=== PATIENT | female | born 1975 | race Caucasian/White ===

== ENCOUNTER 2018-05-17 00:49 | Outpatient (CLI) | payer BC, SELFPAY ==
--- NOTE | 2018-05-17 12:00 | DI.MAMMO_ITS ---
SYMPTOMS/DIAGNOSIS: SCREENING, Z12.31, BASELINE MAMMOGRAM: Mammograms were interpreted according to the usual protocol including computer analysis with CAD system, tomosynthesis and C view imaging. This is a baseline examination. The breasts are composed of heterogeneously dense fibroglandular tissue, breast density Category C. There is scattered benign appearing calcifications in both breasts, greatest in the upper outer quadrants. No suspicious microcalcifications or suspicious masses are seen. IMPRESSION: Category 2 C, negative mammogram with benign findings. Yearly screening mammography is recommended. MQSA ASSESSMENT OF FINDINGS: Negative with benign findings. Category 2. Patient will receive a letter notifying them of these results. Bi-RADS category C. The breasts are heterogeneously dense, which may obscure small masses.
== END 2018-05-17 01:09 ==
PROVIDERS: PCP Family Medicine; Visit Provider Family Medicine
DX: Z12.31 Encounter for screening mammogram for malignant neoplasm of breast (principal)
CPT/HCPCS: 77063; 77067

== ENCOUNTER 2018-12-06 18:48 | Outpatient (REF) | payer BC, SELFPAY ==
[2018-12-08 14:02] LABS: Chlamydia Result Negative; GC Result Negative
== END 2018-12-06 19:08 ==
LOC: LBN 18:48
PROVIDERS: PCP Family Medicine; Visit Provider Family Medicine
DX: N76.0 Acute vaginitis (principal)
CPT/HCPCS: 87491; 87591

== ENCOUNTER 2019-03-10 02:17 | Outpatient (CLI) | payer BC, SELFPAY ==
--- NOTE | 2019-03-10 08:43 | DI.US_ITS ---
EXAM: US THYROID CLINICAL HISTORY: RT THYROID NODULE, E04.1 TECHNIQUE: Ultrasound performed using standard protocol. COMPARISON: THYROID ULTRASOUND from 03/05/2017 FINDINGS: The left lobe measures 4.9 x 1.2 x 1.1 centimeters. There is normal blood flow. No mass is seen. The right lobe measures 5 x 2 x 1.8 centimeters. There is a complex cystic and solid mass in the low er pole of the right lobe of the thyroid gland. It measures 2.4 x 1.4 x 1.8 centimeters. This michael res to 1.6 x 0.7 x 1 centimeter. There is a nodular component internally. There is internal blood f low present. Septations are seen. There is a 2nd heterogeneous mass in the midpole of the right lob e of the thyroid gland. It does show internal blood flow. It measures 0.8 x 0.7 x 0.9 centimeters. The isthmus is unremarkable. IMPRESSION: Interval increase in size of right thyroid nodules. Further evaluation is warranted for the larger a nd more complex nodule in the lower pole. Biopsy should be considered.
== END 2019-03-10 02:37 ==
PROVIDERS: PCP Family Medicine; Visit Provider Otolaryngology
DX: E04.2 Nontoxic multinodular goiter (principal)
CPT/HCPCS: 76536

== ENCOUNTER 2019-04-07 10:05 | Outpatient (REF) | payer BC, SELFPAY | END 2019-04-07 10:25 | LOC: LBN 10:05 | PROVIDERS: PCP Family Medicine; Visit Provider Family Medicine | DX: N76.0 Acute vaginitis (principal) | CPT/HCPCS: 87480; 87510; 87660 ==

== ENCOUNTER 2019-04-12 02:56 | Outpatient (CLI) | payer BC, SELFPAY ==
--- NOTE | 2019-04-12 12:53 | DI.US_ITS ---
EXAM: US PELVIS AND TRANSVAGINAL CLINICAL HISTORY: LLQ PAIN X 2-1/2 YEARS INTERMITTENTLY, R10.32 TECHNIQUE: Ultrasound of the pelvis, both abdominal and transvaginal, was performed using standard p rotocol. COMPARISON: US THYROID from 03/10/2019 FINDINGS: KIDNEYS: Kidneys are symmetric in size. No evidence of renal calculi. No evidence of hydronephrosis. No renal mass or cyst identified. UTERUS: Position: Anteverted. Size: 9.4 x 5.1 x 5.6 cm Endometrium: 1.4 cm. Normal for patient's menstrual status. Myometrium: 3 hypoechoic masses are identified. The largest is seen in the fundal region and measure s 1.8 centimeters. These likely reflect fibroids. Cervix: Unremarkable. OVARIES: Right: 2.9 x 1.3 x 1.3 cm Cyst or mass: Small follicular cysts. Left: 3.6 x 1.7 x 1.6 cm Cyst or mass: 2.1 centimeter involuting cyst. DOPPLER: Color: Symmetric and uniform flow to both ovaries. No hyperemia. Duplex: Normal ovarian arterial waveforms visualized. CUL-DE-SAC: Free fluid: Small amount. IMPRESSION: 1. Normal sonographic appearance of the kidneys. 2. Fibroid uterus. 3. Unremarkable bilateral ovaries.
== END 2019-04-12 03:16 ==
PROVIDERS: PCP Family Medicine; Visit Provider Family Medicine
DX: R10.32 Left lower quadrant pain (principal); D25.9 Leiomyoma of uterus, unspecified
CPT/HCPCS: 76830; 76856

== ENCOUNTER 2019-12-02 12:06 | Outpatient (CLI) | payer BC, SELFPAY ==
[2019-12-05 00:07] LABS: SARS-CoV-2 RNA Undetected (Undetected); SARS-CoV-2 Specimen Source Nasopharynx
== END 2019-12-02 12:26 ==
PROVIDERS: PCP Family Medicine; Visit Provider Family Medicine
DX: Z11.59 Encounter for screening for other viral diseases (principal)
CPT/HCPCS: U0003

== ENCOUNTER 2020-05-28 11:36 | Outpatient (REF) | payer BC, SELFPAY ==
--- NOTE | 2020-05-28 10:20 | PAPFT_PTH ---
PATIENT: Caitlin Epstein LOC: [facility] U#:[id number] AGE/SX: 44/F ROOM: RE05/28/[address]: Sheryl Ortega MD : 1975 BED: DIS: 05/28/2020 SPEC #: [id number] RECD: 05/28/20 12:59 STATUS: JANETH REAdrian #: [id number] ELVIS: 05/28/20 10:[address]: Sheryl Ortega DEPT: [facility] Cytology RECD BY: Deepika Luu Tissues: 1 - CX/ENDOCX FOR PAP SMEARS Procedures: PAP THIN PREP/UVM Screening HPV DNA PROBE Comments: [id number]
== END 2020-05-28 11:37 | disposition home or self-care (01) ==
LOC: LBN 11:36
PROVIDERS: PCP Family Medicine; Visit Provider Family Medicine
DX: Z12.4 Encounter for screening for malignant neoplasm of cervix (principal); Z11.51 Encounter for screening for human papillomavirus (HPV)
CPT/HCPCS: 88142; 87624

== ENCOUNTER 2020-06-15 02:21 | Outpatient (CLI) | payer BC, SELFPAY | END 2020-06-15 02:22 | disposition home or self-care (01) | LOC: LBO 02:21 | PROVIDERS: PCP Family Medicine; Visit Provider Family Medicine | DX: E04.1 Nontoxic single thyroid nodule (principal) | CPT/HCPCS: 36415; 84443 ==

== ENCOUNTER 2022-05-21 02:15 | Outpatient (CLI) | payer BC, SELFPAY ==
--- NOTE | 2022-05-21 09:55 | DI.MAMMO_ITS ---
Exam(s) MG MAMMO DIAGNOSTIC BI US BREAST LT LIMITED EXAM: MG MAMMO DIAGNOSTIC BI CLINICAL HISTORY: lump of left breast,n63.20. TECHNIQUE: Craniocaudal and mediolateral oblique Full Field Digital Mammography views with Computer Aided Diagnosis followed by Tomosynthesis and left breast ultrasound. COMPARISON: MG MG mammo screening from 05/17/2018 US US BREAST LT LIMITED from 05/21/2022 FINDINGS: The patient noted a palpable abnormality in the upper outer quadrant of the left breast which since h as resolved. Mammography/Tomosynthesis: Masses/Architectural Distortion: 2 circumscribed nodules visible in upper outer quadrant. No spicula edna mass is visible Microcalcifictions: Scattered benign calcifications. No suspicious pleomorphic-type are seen. Skin Thickening/Nipple Retraction: None. Left breast US: Echotexture: Normal appearance of the glandular tissue. Shadowing: No suspicious foci. Cyst: 1.5 centimeters cyst 1 o'clock position 2 cm from the nipple. Additional adjacent cyst seen 1 o'clock position 2 cm from the nipple. 1 centimeters cyst 2 o'clock position 1 cm from the nipple. Solid lesions: None seen. Ductal dilation: None. IMPRESSION: 1. No evidence of malignancy is noted. Small simple cysts noted in the upper outer quadrant of the l eft breast. 2. Unless there is more urgent need, follow-up screening mammography is recommended, as per [place] [employer] guidelines. 3. The findings were discussed with the patient on the date of the examination. BI-RADS Category 2 - Benign Findings Breast Density - Category C - Heterogeneously dense Breast density category C or D implies that the patient has dense breast tissue. Dense breast tissue is very common and is not abnormal but dense breast tissue can make it harder to find cancer on a ma mmogram. Also, dense breast tissue may increase their breast cancer risk. This information about the result of the mammogram report was provided to the patient to raise their awareness. Use this report when you speak with the patient about their risks for breast cancer, which includes their family hist ory. At that time, you may recommend for more screening tests (Ultrasound or MRI) as they might be us eful based on their risk. A negative radiographic report should not delay biopsy if a dominant or clinically suspicious mass is present. Up to ten percent of cancers are not identified on mammography. A negative report may reinforce clinical impression. Adenosis and dense breasts may obscure an underlying neoplasm. False positive reports average 6 to 10%. Patient will receive a letter notifying them of these results.
== END 2022-05-21 02:35 ==
PROVIDERS: PCP Nurse Practitioner Family; Visit Provider Nurse Practitioner Family
DX: N63.21 Unspecified lump in the left breast, upper outer quadrant (principal); N60.12 Diffuse cystic mastopathy of left breast
CPT/HCPCS: 76642; 77062; 77066; G0279

== ENCOUNTER → 2023-03-20 00:28 | Outpatient (CLI) | payer BC, SELFPAY ==
[2023-03-20] MEDS: Barium Sulfate 2% W/V-Berry Smoothie 450 ML BTL 900 ML PO (12:47)
[2023-03-20] MEDS: Omnipaque 350 MG/ML 500 ML BTL-Imaging package IJ (13:54)
[2023-03-20] MEDS: Normal Saline - Diluent 50 ML VIAL IJ (13:54)
[2023-03-20] MEDS: Normal Saline Flush 10 ML SYR IVP (13:55)
--- NOTE | 2023-03-20 14:02 | DI.CT_ITS ---
Exam(s) CT ABDOMEN PELVIS W EXAM: CT ABDOMEN PELVIS W CLINICAL HISTORY: Lower abdominal pain,R10.9 TECHNIQUE: Imaging Protocol: Axial computed tomography images with coronal and sagittal reformatted images were created and reviewed CONTRAST MATERIAL: Intravenous: Omnipaque 350 Contrast volume:100 mL Oral: Yes COMPARISON: US US PELVIS TRANSVAGINAL from 04/12/2019 FINDINGS: ABDOMEN: Lung Bases: Normal where visualized. Liver: Normal density. Small cysts are seen in the liver. No suspicious hepatic lesions are seen. Portal, Superior Mesenteric, and Splenic Veins: Unremarkable. Gallbladder and Biliary Tract: No radiodense calculus or dilation. Pancreas: Normal density, no abnormal calcifications or inflammatory process. Spleen: Normal. Adrenals: No masses seen. Kidneys: Normal size, contour and axis. No radiodense stones or obstructive uropathy. No masses seen. Abdominal Aorta: Abdominal portion non-dilated. Bowel: No obstruction or bowel wall thickening. No evidence of appendicitis. Peritoneal Cavity: No ascites, collection or mesenteric inflammatory response. No free air. Lymph Nodes: Within normal limits. Bones: Within normal limits for the patient's age. Soft Tissues: Unremarkable. PELVIS: Bladder: Symmetric distention, no gross wall thickening. Reproductive Organs: There are multiple uterine fibroids present. The largest is seen on the right a nd measures 4.4 x 4.3 cm. There is a tampon in place. There is a 3.0 x 3.3 cm left ovarian cyst. Lymph Nodes: Within normal limits. Bones: Within normal limits for the patient's age. IMPRESSION: 1. Enlarged fibroid uterus. 2. No acute abdominal pelvic process. RADIATION DOSE DELIVERED: Total DLP DATA REPOSITORY: All CT scans at this facility are submitted to the National Radiology Data Registry (NRDR) Dose Index Registry (DIR) with the [employer] (ACR). RADIATION OPTIMIZATION: All CT scans at this facility use at least one of these dose optimization te chniques: automated exposure control; mA and/or kV adjustment per patient size (includes targeted exa ms where dose is matched to clinical indication); or iterative reconstruction.
== END ==
PROVIDERS: PCP Nurse Practitioner Family; Visit Provider Nurse Practitioner Family
DX: R10.9 Unspecified abdominal pain (principal); N85.2 Hypertrophy of uterus
CPT/HCPCS: 74177

== ENCOUNTER 2023-05-21 21:08 | Emergency (ER) | payer BC, SELFPAY ==
[2023-05-21 21:10] VITALS: BP 122/67; PULSE 84; RESP 18; TEMP 36.5; O2SAT 99
--- NOTE | 2023-05-21 21:23 | NUR.NOTE ---
Nursing Note: Pt called RN into bathroom, large fist sized clot noted in toilet. Dr Waggoner called over to visualize, walked pt back to room.
--- NOTE | 2023-05-21 21:27 | ED.GENADUL_ITS ---
HPI General Mode of arrival: ambulatory . Date/Time Provider Initiated Documentation: 05/21/23 21:10 . Limitations to Documentation: no limitations . Information obtained by: patient . History of Present Illness 47 year old F presents to the emergency department with the chief complaint of lower abdominal cramping, described as moderate, Patient started experiencing this day(s) (1) and it has been intermittent. No relieving factors improve symptom(s), No exacerbating factors reported . Patient notes denies chest pain, fever/chills and shortness of breath. Patient did receive the following treatments prior to arrival, NSAID Related Data Home Medications Medication Instructions Recorded Confirmed metronidazole 500 mg tablet 500 mg PO Q12H 7 days #14 tabs 04/22/23 05/21/23 norethindrone acetate 1.5 1 tab PO .COMPLEX #63 tabs 04/22/23 05/21/23 mg-ethinyl estradiol 30 mcg tablet Previous Rx's Medication Instructions Recorded metronidazole 500 mg tablet 500 mg PO Q12H 7 days #14 tabs 04/22/23 norethindrone acetate 1.5 1 tab PO .COMPLEX #63 tabs 04/22/23 mg-ethinyl estradiol 30 mcg tablet Allergies Allergy/AdvReac Type Severity Reaction Status Date / Time No Known Allergies Allergy Unverified 05/21/23 21:15 General Stated Complaint: Abd Prob JUDY: 3 Review of Systems All systems reviewed & are unremarkable except as noted in HPI and below Constitutional Constitutional: Denies chills, Denies fever(s) and Denies weakness Cardiovascular Cardiovascular: Denies chest pain and Denies dyspnea Respiratory Respiratory: Denies cough and Denies dyspnea Gastrointestinal Gastrointestinal: Denies vomiting Genitourinary Genitourinary: Denies dysuria Integumentary/Breasts Skin/Breast: Denies rash Neurologic Neurologic: Denies weakness Exam Const General: no acute distress Orientation: alert HENMT Head: normal to inspection Ears: external ears normal General nose exam: external nose normal Mouth: moist mucous membranes Eyes General: appearance normal, both eyes and all related structures Neck Neck: normal visual inspection Resp Effort & Inspection: normal respiratory effort and able to speak in complete sentences Cardio Rate: regular rate GI Palpation: soft and nontender Skin General skin exam: no rashes or lesions noted Neuro General: patient alert and patient oriented x3 Extrem General: normal to inspection Psych Mental Status: mental status grossly normal Course Vital Signs Vital signs: Vital Signs Temperature 36.5 C 05/21/23 21:10 Pulse 84 05/21/23 21:10 Respiratory Rate 18 05/21/23 21:10 Blood Pressure 122/67 05/21/23 21:10 Pulse Oximetry 99 05/21/23 21:10 Temperature 36.5 C 05/21/23 21:10 Temperature Source Skin 05/21/23 21:10 Pulse 84 05/21/23 21:10 Respiratory Rate 18 05/21/23 21:10 Respiratory Effort Normal, Non-Labored 05/21/23 21:14 Blood Pressure 122/67 05/21/23 21:10 Blood Pressure Position Sitting 05/21/23 21:10 Pulse Oximetry 99 05/21/23 21:10 Oxygen Delivery Method Room Air 05/21/23 21:10 Oxygen Flow Rate 0 05/21/23 21:10 Pain Level 7 05/21/23 21:10 Medical Decision Making 47 yo female with hx of known fibroid and states going to have elective hysterectomy in June and has had lower abdominal cramping for a few months and intermittent bleeding with ct and u/s only showing fibroid in the uterus, comes in with lower abdominal cramping and bleeding throughout the day. Denies upper abdominal pain, vomiting, fevers, chills. She took ibuprofen around 8pm and now feels better, did have a clot of blood when she went to urinate. She is caox4 speaking clearly, has a soft nontender abdomen. Suspect this could be related to her fibroid, will check cbc, cmp and coags and reassess. Given lack of abdominal tenderness now with recent reassuring imaging doubt other surgical pathology such as appendicitis or entities such as diverticulitis labs without significant abnormalities, pt asymptomatic and requests d/c, given stable vitals and no tenderness feel she is stable for d/c and can f/u with obgyn. Return precautions given Differential Diagnosis Differential Diagnosis: fibroid, anemia Quality:SDOH Health Related Social Needs: No Data to Display PFSH All Active Problems (Updated 05/21/23 @ 21:53 by Michel Waggoner MD) Vaginal bleeding (Acute) Hx of section (Chronic) Abnormal uterine bleeding (AUB) (Acute) Fibroid uterus (Acute) 2019. [id number] Fibroids: [id number], [id number] 2022. [id number] Fibroids: [id number], [id number] Abdominal pain (Acute) Lump of left breast (Acute) Bacterial vaginosis (Acute) recurrent/prophylactic tx with metronidazole Encounter for insertion of mirena IUD (Acute 11/24/16) Thyroid nodule (Acute 07/24/16) DR. BAPTISTE; RIGHT; 1.8 X 1.2 X 0.7 cm Thyroid cyst (Acute 02/28/16) RIGHT-DR. BAPTISTE Seborrheic keratoses (Acute 01/02/14) LEFT THIGH Surgical History (Updated 04/22/23 @ 21:13 by Anika Armenta MD) History of biopsy SHAVE BX L THIGH 01/02/14 Family History (Updated 05/30/20 @ 12:23 by Kori Smith) Mother No problems noted. Father Depression Brother No problems noted. Maternal Grandfather , AGE 83 Cancer Paternal Grandfather , AGE 50 No problems noted. Maternal Grandmother , AGE 85 No problems noted. Paternal Grandmother , AGE 93 No problems noted. Son No problems noted. Daughter No problems noted. Social History (Updated 04/22/23 @ 21:13 by Anika Armenta MD) Smoking/Tobacco Use Status: Never Second Hand Exposure: Yes Smoking risk assessment performed?: Yes Alcohol Intake: never Drug use: Never Substance use type: does not use Caregiver/Support person: No Household members: children and other Details: S- Bashir 20yo @ [employer]. D-Mary Kate 18yo Housing: house Number of Children: 2 Communication Needs: None Education Level: college Do you need help understanding health information?: Rarely current occupation: Teacher. Pets and animals: Yes Pets and animals: dog(s) Do you think of yourself as: straight/heterosexual Current gender identity: female What is your relationship status?: How often do you talk on the phone with friends or family?: three or more times per week How often do you get together with friends or relatives?: twice per week How often do you attend baptism or moravian services?: 1-3 times per year Do you belong to any clubs or organized social groups?: yes Panel score (0-1 are the most socially isolated patients): 2 What type of physical activity do you participate in: running Duration: 30-45 minutes/day Frequency: 3-4 times per week Delaney/Samaritan: None Special delaney needs: No Seatbelt use: always Helmet use: Yes Helmet use: always Drive intox or ride w/intox industrial truck driver: No Discharge Plan Disposition Patient Disposition: Home Condition: Stable Discharge Details Clinical Impression: Vaginal bleeding, Abdominal pain Primary Care Provider: Cruz Pringle ED Provider: Michel Waggoner Home Meds and New Rx's Prescriptions: Continued metronidazole 500 mg tablet 500 mg PO Q12H 7 Days Qty: 14 5RF norethindrone ac-eth estradiol 1.5-30 mg-mcg tablet 1 tab PO .COMPLEX Qty: 63 5RF Rx Instructions: 1 tab orally take pill with hormones every day. Do not stop the pills to have a period.; Discharge Instructions Additional Instructions: your blood work did not show concerning findings you can take 600mg ibuprofen every 6 hours as needed follow up with [facility] within a week return to the emergency department for severe worsening of pain, if you feel short of breath or have persistent vomiting
[2023-05-21 21:50] LABS: Abs Immature Grans 0.02 10^3/uL (0.0-0.06); Absolute Basophil Count 0.04 10^3/uL (0.0-0.2); Absolute Eosinophil Count 0.23 10^3/uL (0.0-0.7); Absolute Lymphocyte Count 2.07 10^3/uL (1.2-3.4); Absolute Monocyte Count 0.56 10^3/uL (0.1-0.8); Absolute Neutrophil Count 5.63 10^3/uL (1.2-6.7); Basophils % 0.5; Eosinophils % 2.7; HCT 35.7 % (36.0-46.0); Immature Grans % 0.2; Lymphocytes % 24.2; MCH 30.3 pg (27.0-33.0); MCHC 33.6 % (32.0-36.0); MCV 90 fL (80-95); MPV 10.2 fL (8.0-11.0); Monocytes % 6.5; Neutrophils % 65.9; Platelet Count 309 10^3/uL (130-400); RBC 3.96 10^6/uL (3.93-5.22); RDW-SD 39.3 fL; WBC 8.55 10^3/uL (4.4-10.8)
[2023-05-21 22:01] LABS: PTT Activated 24.8 sec (23.6-32.8); Prothrombin Time 9.8 sec (9.1-11.1)
[2023-05-21 22:09] LABS: HCG Qual (Serum) Negative
[2023-05-21 22:10] LABS: ALT 24 U/L (14-59); AST 15 U/L (15-37); Albumin 3.5 g/dL (3.4-5.0); Alkaline Phosphatase 30 U/L (46-116); Anion Gap 12.3 mmol/L (3-11); BUN 17 mg/dL (7-18); Bilirubin, Total 0.3 mg/dL (0.2-1.0); CO2 24.7 mmol/L (21.0-32.0); CREATININE 1.1 mg/dL (0.55-1.02); Calcium 9.2 mg/dL (8.5-10.1); Chloride 104 mmol/L (98-107); Estimated GFR 62.37 (mL/min/1.73m2); Glucose 132 mg/dL (74-106); Potassium 3.7 mmol/L (3.5-5.1); Sodium 141 mmol/L (136-145); Total Protein 6.7 g/dL (6.4-8.2)
[2023-05-21 22:35] VITALS: PULSE 69; RESP 16; O2SAT 100
== END 2023-05-21 22:40 | disposition home or self-care (01) ==
PROVIDERS: Emergency Provider Emergency Medicine; PCP Nurse Practitioner Family
DX: N93.9 Abnormal uterine and vaginal bleeding, unspecified (principal); R10.30 Lower abdominal pain, unspecified
CPT/HCPCS: 36415; 80053; 86850; 86900; 86901; 99283; 84703; 85025; 85610; 85730

== ENCOUNTER 2023-06-02 03:33 | Outpatient (CLI) | payer BC, SELFPAY ==
[2023-06-02 16:22] LABS: HCT 35.2 % (36.0-46.0); HGB 11.7 g/dL (11.2-15.7); MCH 30.5 pg (27.0-33.0); MCHC 33.2 % (32.0-36.0); MCV 92 fL (80-95); MPV 10.6 fL (8.0-11.0); Platelet Count 327 10^3/uL (130-400); RBC 3.84 10^6/uL (3.93-5.22); RDW 12.1 % (11.7-14.6); RDW-SD 40.7 fL; WBC 6.08 10^3/uL (4.4-10.8)
[2023-06-02 17:06] LABS: HCG Qual (Serum) Negative
[2023-06-02 17:16] LABS: ALT 19 U/L (14-59); AST 10 U/L (15-37); Albumin 3.4 g/dL (3.4-5.0); Alkaline Phosphatase 31 U/L (46-116); Anion Gap 10.3 mmol/L (3-11); BUN 14 mg/dL (7-18); Bilirubin, Total 0.2 mg/dL (0.2-1.0); CO2 24.7 mmol/L (21.0-32.0); Calcium 8.8 mg/dL (8.5-10.1); Chloride 108 mmol/L (98-107); Estimated GFR 69.93 (mL/min/1.73m2); Glucose 133 mg/dL (74-106); Potassium 3.9 mmol/L (3.5-5.1); Sodium 143 mmol/L (136-145); Total Protein 6.3 g/dL (6.4-8.2)
== END 2023-06-02 03:34 | disposition home or self-care (01) ==
LOC: LBO 03:33
PROVIDERS: PCP Nurse Practitioner Family; Visit Provider Obstetrics & Gynecology Gynecology
DX: N93.8 Other specified abnormal uterine and vaginal bleeding (principal); D25.9 Leiomyoma of uterus, unspecified; Z01.818 Encounter for other preprocedural examination; Z01.812 Encounter for preprocedural laboratory examination
CPT/HCPCS: 36415; 80053; 85027; 86850; 86900; 86901; 84703

== ENCOUNTER 2023-06-04 11:32 | Observation (INO) | payer BC, SELFPAY ==
[2023-06-04] VITALS (13 sets, daily range): BP systolic 94–118; BP diastolic 53–96; PULSE 66–83; RESP 12–25; TEMP 35.6–37.4; O2SAT 97–100; BMI 25.1
--- NOTE | 2023-06-04 06:21 | W.ANESPRE ---
General Info Date of Service Date Performed: 06/04/23 Height: 5 ft 9 in Weight: 77.111 kg Body Mass Index (BMI): 25.1 Surgical Procedure: Operation Date: 06/04/23 08:25 Proposed Procedure Side Surgeon p Hysterectomy Vaginal Laparoscopic Assist, Possible BRANT, Cystoscopy Anika Armenta MD Meds Allergies and Home Medications Allergies Allergy/AdvReac Type Severity Reaction Status Date / Time No Known Allergies Allergy Unverified 06/04/23 06:32 Home Medication Medication Instructions Recorded norethindrone acetate 1.5 1 tab PO .COMPLEX #63 tabs 04/22/23 mg-ethinyl estradiol 30 mcg tablet metronidazole 500 mg tablet 500 mg PO Q12H PRN 06/02/23 acetaminophen 500 mg tablet 500 mg PO Q6H PRN 06/04/23 (Acetaminophen Extra Strength) Current Visit Medications: Current Medications Generic Name Dose Route Start Last Admin Trade Name Freq PRN Reason Stop Dose Admin Ringer's Solution 1,000 mls @ 125 mls/hr 06/04/23 06:00 IV 06/04/23 23:59 INFUSION NEELAM Cefazolin Sodium/Dextrose 2 gm in 50 mls @ 100 mls/hr 06/04/23 06:00 Ancef Duplex IVPB 06/04/23 23:59 PREOP NEELAM IV Miscellaneous Supplies 1 each 06/04/23 06:00 Iv Access IV 06/04/23 23:59 DIRECTED NEELAM Sodium Chloride 0 ml 06/04/23 06:00 Normal Saline Flush 10 Ml Syr IV 06/04/23 23:59 PRN PRN Sodium Chloride 0 ml 06/04/23 06:00 Normal Saline 10 Ml Vial IJ 06/04/23 23:59 DIRECTED PRN Sterile Water 0 ml 06/04/23 06:00 Water,Injection,Sterile 10 Ml Vial IJ 06/04/23 23:59 DIRECTED PRN PFSH Active Problems Active Problems: Problem Status Onset Code Vaginal bleeding N93.9 Hx of section Z98.891 Abnormal uterine bleeding (AUB) N93.9 Fibroid uterus D25.9 Abdominal pain R10.9 Lump of left breast N63.20 Bacterial vaginosis N76.0, B96.89 Encounter for insertion of mirena IUD 11/24/16 Z30.430 Thyroid nodule 07/24/16 E04.1 Thyroid cyst 02/28/16 E04.1 Seborrheic keratoses 01/02/14 L82.1 Surgical History Surgical History History of biopsy SHAVE BX L THIGH 01/02/14 Tobacco Smoking/Tobacco Use Status: Never Second hand exposure: Yes Alcohol Alcohol Intake: current Alcohol intake frequency: a few times a month Substance Use Substance use: Never Substance use type: does not use Vital Signs and Lab Results Lab Results Blood Type / Crossmatch: Patient ABO/Rh AB Positive 06/02/23 Antibody Screen NEGATIVE 06/02/23 Complete Blood Count: White Blood Count 6.08 10^3/uL (4.4-10.8) 06/02/23 16:03 Red Blood Count 3.84 10^6/uL (3.93-5.22) L 06/02/23 16:03 Hemoglobin 11.7 g/dL (11.2-15.7) 06/02/23 16:03 Hematocrit 35.2 % (36.0-46.0) L 06/02/23 16:03 Platelet Count 327 10^3/uL (130-400) 06/02/23 16:03 Complete Metabolic Panel: Sodium 143 mmol/L (136-145) 06/02/23 16:03 Potassium 3.9 mmol/L (3.5-5.1) 06/02/23 16:03 Chloride 108 mmol/L (98-107) H 06/02/23 16:03 Carbon Dioxide 24.7 mmol/L (21.0-32.0) 06/02/23 16:03 BUN 14 mg/dL (7-18) 06/02/23 16:03 Creatinine 1.0 mg/dL (0.55-1.02) 06/02/23 16:03 Est GFR (CKD-EPI 2020) 69.93 (mL/min/1.73m2) 06/02/23 16:03 Calcium 8.8 mg/dL (8.5-10.1) 06/02/23 16:03 Albumin 3.4 g/dL (3.4-5.0) 06/02/23 16:03 Glucose 133 mg/dL (74-106) H 06/02/23 16:03 Liver Function Panel: Alanine Aminotransferase (ALT/SGPT) 19 U/L (14-59) 06/02/23 16:03 Aspartate Amino Transf (AST/SGOT) 10 U/L (15-37) L 06/02/23 16:03 Coagulation Panel: INR International Normalized Ratio 1.0 (0.9-1.1) 05/21/23 21:35 Prothrombin Time 9.8 sec (9.1-11.1) 05/21/23 21:35 Activated Partial Thromboplast Time 24.8 sec (23.6-32.8) 05/21/23 21:35 Cardiac Panel: No Data to Display Arterial Blood Gas: No Data to Display Venous Blood Gas: No Data to Display Pancreas Panel: No Data to Display Thyroid Panel: No Data to Display Infectious Disease: No Data to Display Blood Cultures: No Data to Display Toxicology Panel: No Data to Display Panel: Serum HCG, Qualitative Negative 06/02/23 16:03 Anesthesia Assessment and Plan Anesthesia History Personal History: No History of Anesthesia Complications Family History: No Family History of Anesthesia Complications Exercise Tolerance Exercise Tolerance: Metabolic Equivalents>4 Pertinent Negatives Pertinent Negatives: No Symptoms of GERD, No Major Cardiovascular Symptoms or Complaints, No Major Pulmonary Symptoms or Complaints and No History of CVA/TIA Cardiac & Pulmonary Exam Cardiac Exam: Normal S1/S2 Heart Sounds Pulmonary Exam: Clear Bilateral Breath Sounds Implantable Cardiac Device Does patient have a Pacemaker or an ICD?: No Airway Exam Known Difficult Airway: No Mallampati Class: 3 Mouth Opening: Normal (> 3cm) Thyromental Distance: Greater than 3 cm Neck Range of Motion: Full ROM Neck Circumference: Normal Teeth Condition: Normal Dentition ASA Classification ASA Score: ASA 2 Emergency Case?: No NPO Status NPO Status: NPO Clears >2 hours, Solids >8 hours Status Status: Negative HCG Anesthesia Plan Resuscitation Status: Full Code Anesthesia Technique: General Anesthesia Airway Planned: Endotracheal Tube Pain Management: Intrathecal Analgesia Monitors Used: Standard Monitors and SedLine
[2023-06-04] MEDS: Lactated Ringers 1,000 ML 125 ML IV ×3 (06:59→21:06)
[2023-06-04] MEDS: ceFAZolin 2 GM/50 ML BAG IVPB (08:55)
[2023-06-04] MEDS: Bupivacaine 0.25% Pres-Free 30 ML VIAL (09:30)
--- NOTE | 2023-06-04 10:40 | UTER_PTH ---
PATIENT: Caitlin Epstein LOC: [facility]#:[id number] AGE/SX: 47/F ROOM: RE06/04/[address]: Anika Armenta : 1975 BED: A DIS: 06/05/2023 SPEC #: [id number] RECD: 06/04/23 12:02 STATUS: JANETH WYATT #: [id number] ELVIS: 06/04/23 10:[address]: Anika Armenta DEPT: Surgical Specimen RECD BY: Deepika Luu ENTERED: 06/04/23 12:04 SP TYPE: UTER OTHR DR: Cruz Pringle, PRISCILLA Tissues: 1 - UTERUS W OR W/O OVARIES(NOT TUMOR/PROLAPSE) Procedures: GROSS AND MICRO LEVEL 5 Comments: [id number]
[2023-06-04] MEDS: Lidocaine 1% Multi-Dose W/EPI 1/100,000 50 ML VIAL (11:14)
--- NOTE | 2023-06-04 11:57 | W.PM.OP ---
Date of service: 06/04/23 Time of Service: 11:58 Operative Note Operative Note DATE OF PROCEDURE: 06/04/23 PRE-OP DIAGNOSIS: fibroid uterus, pelvic pain, abnormal uterine bleeding POST-OP DIAGNOSIS: same PROCEDURE: laparoscopic assisted vaginal hysterectomy, bilateral salpingectomy and bladder cystoscopy SURGEON: Anika Armenta ASSISTING SURGEON: Lilibeth Rosas Refer to Anesthesia Record ESTIMATED BLOOD LOSS: 150 PATHOLOGY: other (uterus, fallopian tubes and cervix.) COMPLICATIONS: None Patient was transported to: PACU Patient's condition: stable Indications: Pt is a 47yo female with a symptomatic fibroid uterus. She had been experiencing increasingly heavy, painful and recently prolonged menses. Findings: Bulky uterus with multiple intramural fibroids and serosal fibroids. Nl ovaries and fallopian tubes. Nl upper abdomen. Procedure Description: Patient was taken to the operating room where she received spinal anethesia. She was then placed in the dorsal supine position and general endotracheal anesthesia was administered without difficulty. She was positioned in the dorsal lithotomy position in yellowfin stirrups with SCDs in place. After being prepped and draped in the usual sterile fashion a surgical timeout was performed. Zuniga catheter was placed to gravity drainage. A bivalve speculum was placed in the vagina the anterior lip of the cervix was grasped with a single-tooth tenaculum. A Latha uterine manipulator was successfully inserted into the uterine cavity, the catheter bulb inflated with 8 cc of normal saline and the device left in place. Attention was then turned to the patient's abdomen. She received 2 g of Ancef prior to skin incision. The umbilical fold was infiltrated with 0.25% Marcaine without epinephrine. A scalpel was then used to make a 12mm horizontal skin incision in the umbilical fold. Two penetrating towel clips were used to tent up the skin and through the periumbilical incision and a Veres needle was introduced into the abdomen with carbon dioxide as the distention medium. Intra-abdominal placement was confirmed by a drop in the intra-abdominal pressure. Once a pneumoperitoneum was established a 12 mm Visiport was placed under direct visualization. Patient was then placed in Trendelenburg position. The skin was infiltrated with 1cc of 0.25% Marcaine without epinephrine at two sites 6 cm diagonal from the umbilical incision. Those sites were incised with a scalpel and two 5 mm lower ports were placed under direct visualization. After careful inspection of the pelvis a LigaSure electrocautery device was used to clamp, cauterize and transect the left mesosalpinx to the left isthmus of the left fallopian tube. The left fallopian tube was transected from the uterine cornua and then delivered through the 12mm umbilical port site. The left proper ovarian ligament was then similarly clamped cauterized and transected from its attachment to the body of the uterus with care take to clamp and cauterize the uterine vessel in proximity to the serosal fibroid . The left round ligament and broad ligament were then clamped, cauterized and transected to the level of the lower uterine segment. The vesico-uterine peritoneum was incised and the the from the lower uterine segment and mobilized off of the body of the cervix. The pedicles of the uterine round and broad ligaments were inspected and noted to be hemostatic. On the contralateral side the right mesosalpinx, right proper ovarian ligament, round, and right broad ligament were sequentially clamped, cauterized and transected using the Ligasure device to the level of the insertion of the uterine vessels. The remaining vesicouterine peritoneum was incised across the lower uterine segment and the bladder flap completed using the Ligasure device and gently counter traction. All pedicles were inspected and noted to be hemostatic. Decision was made to proceed with the vaginal portion of the case. Laparoscopic instruments were removed from the ports , the pneumoperitoneum was reduced, and the was abdomen covered with sterile drape. A weighted vaginal speculum was placed in the vagina and the anterior and posterior lips of the cervix were grasped with Rosaline clamps. Body of the cervix was circumferentially infiltrated with 1% lidocaine solution of epinephrine. A circumferential incision of the cervical epithelium was made with a Bovie electrocautery. The posterior cul-de-sac was entered sharply and through the this incision a long billed weighted speculum was placed. The left and right uterosacral ligament complexes were identified clamped, transected and suture-ligated and the suture held long. The vesicouterine fascia was identified and the anterior cul-de-sac bluntly sharply. Through this incision a curved right angled retractor was inserted and used to retract the bladder away from the operative field. The remaining right and left broad ligament attatchments were sequentially clamped, cauterized, and transected and the specimen was passed off of the operative field. The vaginal cuff was reapproximated in a vertical fashion with a running suture of 0 Vicryl. Instruments removed from the vagina and attention was again turned to the abdomen where a pneumoperitoneum was reestablished and the pelvis inspected using the laparoscope. The vaginal cuff was intact and was hemostatic as were the round ligament and broad ligament pedicles. The instruments were removed from the port sites, the pneumoperitoneum reduced and the ports removed. The fascia of the periumbilical skin incision was closed with interrupted suture of 0 Vicryl. The skin of all port site incisions were reapproximated with a subcuticular closure of 4-0 Monocryl and and covered with sterile steri-strips and a band-aid. A cystoscopy was performed with both ureteral jets were patent with a brisk eflux of urine noted from each. The bladder was inspected and was normal in appearance. Zuniga catheter was reinserted to gravity drainage and the patient was placed in the dorsal supine position, awakened, extubated, and transported recovery area in stable condition. All sponge lap needle counts correct x2.
--- NOTE | 2023-06-04 12:11 | W.ANESPOSTOP ---
Postoperative Evaluation Date, Time and Location Date Performed: 06/04/23 Time Performed: 12:11 Patient Location: Day Surgery Unit Vital Signs Most Recent Imported Vital Signs: Most Recent Vital Signs Temp Pulse Resp BP Pulse Ox 36.5 C 69 20 100/58 L 100 06/04/23 12:02 06/04/23 12:02 06/04/23 12:02 06/04/23 12:02 06/04/23 12:02 Pain Score Most Recent Pain Score: Most Recent Pain Score Pain Level 0 06/04/23 12:02 Assessment Mental Status: Awake (Alert & Oriented to Patient Baseline) Airway and Respiratory Function: Patent airway with normal (patient baseline) respiratory exam Cardiovascular Function: Hemodynamically Stable Hydration Status: Adequately Hydrated Nausea & Vomiting: No Nausea or Vomiting Pain: Pt. Denies Any Pain Peripheral Nerve Block: Patient did not receive a nerve block
--- NOTE | 2023-06-04 15:15 | W.PM.PROGNOT ---
Date of Service Date of service: 06/04/23 Time of Service: 15:15 Assessment and Plan Assessment and plan (1) History of LAVH: Status: Acute Assessment and plan: Plan discharge in am. Subjective Subjective Patient reports: no new complaints, tolerating liquids well and other (throat is scratchy) Interval history since last seen: POD 0 LAVH. Pt reports being comfortable. Zuniga in place. VVS. Visiting with family members. Plan is to get OOB this evening. I reviewed the findings a time of surgery. Anticipated discharge to home tomorrow. Objective Last Vital Signs Temp 97.0 F L 06/04/23 14:29 Pulse 68 06/04/23 14:29 Resp 16 06/04/23 14:29 BP 94/60 L 06/04/23 14:29 Pulse Ox 98 06/04/23 14:29 Time Spent with Patient Time Spent with Patient: <25 minutes Time was spent: other (postop rounding.)
[2023-06-04] MEDS: Ketorolac 30 MG/ML VIAL IVP ×2 (17:50→23:17)
[2023-06-04] MEDS: Normal Saline Flush 10 ML SYR IV (18:14)
[2023-06-04] MEDS: Docusate Sodium 100 MG CAP PO (19:47)
[2023-06-04] MEDS: diphenhydrAMINE 25 MG CAP PO (21:04)
[2023-06-05] MEDS: Ketorolac 30 MG/ML VIAL IVP (05:37)
[2023-06-05] MEDS: Ondansetron 4 MG/2 ML VIAL IVP (05:42)
[2023-06-05] MEDS: Lactated Ringers 1,000 ML 125 ML IV (05:47)
[2023-06-05 06:38] LABS: HCT 32.6 % (36.0-46.0); HGB 10.9 g/dL (11.2-15.7); MCH 30.2 pg (27.0-33.0); MCHC 33.4 % (32.0-36.0); MCV 90 fL (80-95); MPV 10.7 fL (8.0-11.0); Platelet Count 295 10^3/uL (130-400); RBC 3.61 10^6/uL (3.93-5.22); RDW 11.9 % (11.7-14.6); RDW-SD 39.2 fL; WBC 9.75 10^3/uL (4.4-10.8)
[2023-06-05 08:05] VITALS: BP 108/68; PULSE 73; RESP 16; TEMP 36.3; O2SAT 97
[2023-06-05] MEDS: Docusate Sodium 100 MG CAP PO (08:17)
--- NOTE | 2023-06-05 08:19 | W.PM.DS.N ---
Date of service: 06/05/23 Time of Service: 08:19 DS: Diagnosis Discharge Diagnosis (1) History of LAVH: Status: Acute Asessment and Plan: Pt will be discharged to home today. Plan f/u in 2 and 6 weeks. Rx for Percocet for severe pain, Ibuprofen and Acetaminophen for moderate pain. (2) Abnormal uterine bleeding (AUB): Status: Acute (3) Fibroid uterus: Status: Acute Discharge Plan Disposition Patient Disposition: Home Condition: Improving Discharge Details Reason For Visit: Laparoscopic assist vaginal hysterectomy Admit Date/Time: 06/04/23 11:32 Admit Provider: Anika Armenta Attending Provider: Anika Armenta Primary Care Provider: Cruz Pringle Hospital Course Hospital Course: Pt was admitted the morning of surgery and underwent a LAVH with ovarian conservation. 150cc EBL. Discharged to home on POD 1 tolerating regular diet and pain well controlled. Voiding successfully. Incisions well approximated. Steristrips in place. Pt will be discharged with modified activity and Rx for limited number of Percocet for severe pain. Plan f/u in office in two weeks. Final pathology pending. Home Meds and New Rx's Prescriptions: No Action norethindrone ac-eth estradiol 1.5-30 mg-mcg tablet 1 tab PO .COMPLEX Qty: 63 5RF Rx Instructions: 1 tab orally take pill with hormones every day. Do not stop the pills to have a period.; metronidazole 500 mg tablet 500 mg PO Q12H PRN Patient Comments: Pt. states she always has this on hand, but is not currently taking at this time. acetaminophen [Acetaminophen Extra Strength] 500 mg tablet 500 mg PO Q6H PRN Discharge Instructions Additional Instructions: You may take over the counter Ibuprofen 600mg every 6 hours and Acetaminophen 325mg every 6 hours as needed for mild to moderate pain. For severe pain take one tablet of Percocet 5/325mg every six hours as needed for pain. No driving for 2weeks or until you can safely place the breaks on in the event of an emergency. You may remove the bandaids as needed. Steristrips can be left on until your two week postop appointment. No tub baths, showers only. Stand Alone Forms: DSU Post Transfer Coordinator SurgeryW/Incision Activity:: no driving for 2 weeks. Equipment/Supplies:: No Equipment Needed Diet:: As Tolerated Discharge Orders Discharge Orders: Discharge Order (Routine); Ordered 06/05/23 Ordered By: Anika Armenta DS: Summary Time Spent with Patient providing and/or coordinating discharge services: Less than 30 minutes Status at Discharge Functional status at discharge: independent ambulation Overall status at discharge: patient is progressing back to baseline Mental Status: mental status grossly normal Speech and Movement: speech and movement normal Mood: congruent mood Affect: normal affect Quality:SDOH Health Related Social Needs: No Data to Display Exam Const General: no acute distress Nutritional Appearance: average body habitus Orientation: alert, awake and oriented x3 Neck Neck: normal visual inspection Resp Effort & Inspection: normal respiratory effort Cardio Rate: regular rate Rhythm: regular rhythm GI Inspection: normal to inspection Palpation: soft, no masses and nontender Rectal Exam - female: deferred General: deferred Back/Spine/Pelvis Back: no CVA tenderness Skin General skin exam: no rashes or lesions noted, no ecchymosis and no erythema Extrem General: normal to inspection and full ROM Psych Appearance: grossly normal Mental Status: mental status grossly normal Speech and Movement: speech and movement normal Mood: congruent mood Affect: normal affect DS: Data Vitals/I&O Vitals and I&O: Vital Signs Temperature 97.3 F L 06/05/23 08:05 Temperature Source Tympanic 06/05/23 08:05 Pulse 73 06/05/23 08:05 Pulse Rhythm Regular 06/04/23 23:39 Respiratory Rate 16 06/05/23 08:05 Respiratory Effort Normal, Non-Labored 06/04/23 23:39 Respiratory Depth Normal 06/04/23 23:39 Respiratory Pattern Normal 06/04/23 23:39 Blood Pressure 108/68 06/05/23 08:05 Pulse Oximetry 97 06/05/23 08:05 Respiratory End-tidal CO2 34 06/04/23 12:02 Oxygen Delivery Method Room Air 06/05/23 08:05 Oxygen Flow Rate 0 06/05/23 08:05 Pain Level 2 06/05/23 08:05 Intake & Output 06/04/23 06/04/23 06/05/23 11:59 23:59 11:59 Intake Total 650 / 9400.352 6660.250 / 6179.803 5733 / 1180 Output Total 100 / 1650 1550 / 1650 400 / 400 Balance 550 / 181.250 -368.750 / 181.250 780 / 780 Weight 169 lb 15.622 oz Intake: IV 650 / 5824.836 5330.250 / 6994.664 7136 / 1000 Oral 180 / 180 Output: Urine 100 / 1500 1400 / 1500 400 / 400 Estimated Blood Loss 150 / 150 Other: Urine Color Indigo Green [place] Urine Appearance Clear Clear Clear Urine Odor None None Comment Urine draining in the tube appears indigo in color. Urine has not collected in bag at time of assessment. color from . Emesis Description None None Voiding Methods Indwelling Catheter Toilet Data Completed and Pending Labs on day of discharge: Labs from last 24 hours 06/05/23 06:22 WBC 9.75 RBC 3.61 L Hgb 10.9 L Hct 32.6 L MCV 90 MCH 30.2 MCHC 33.4 RDW 11.9 Plt Count 295 MPV 10.7 PFSH All Active Problems (Updated 06/04/23 @ 15:27 by Anika Armenta MD) History of LAVH (Acute) 06/04/23. with bilateral salpingectomy. ovaries conserved. Vaginal bleeding (Acute) Hx of section (Chronic) Abnormal uterine bleeding (AUB) (Acute) Fibroid uterus (Acute) 2019. [id number] Fibroids: [id number], [id number] 2023. [id number] Fibroids: [id number], [id number] Abdominal pain (Acute) Lump of left breast (Acute) Bacterial vaginosis (Acute) recurrent/prophylactic tx with metronidazole Encounter for insertion of mirena IUD (Acute 11/24/16) Thyroid nodule (Acute 07/24/16) DR. BAPTISTE; RIGHT; 1.8 X 1.2 X 0.7 cm Thyroid cyst (Acute 02/28/16) RIGHT-DR. BAPTISTE Seborrheic keratoses (Acute 01/02/14) LEFT THIGH Surgical History (Updated 06/04/23 @ 15:27 by Anika Armenta MD) History of biopsy SHAVE BX L THIGH 01/02/14 Family History (Updated 05/30/20 @ 12:23 by Kori Smith) Mother No problems noted. Father Depression Brother No problems noted. Maternal Grandfather , AGE 83 Cancer Paternal Grandfather , AGE 50 No problems noted. Maternal Grandmother , AGE 85 No problems noted. Paternal Grandmother , AGE 93 No problems noted. Son No problems noted. Daughter No problems noted. Social History (Updated 04/22/23 @ 21:13 by Anika Armenta MD) Smoking/Tobacco Use Status: Never Second Hand Exposure: Yes Smoking risk assessment performed?: Yes Alcohol Intake: current Alcohol Intake frequency: a few times a month Drug use: Never Substance use type: does not use Caregiver/Support person: No Household members: children and other Details: Connie Camejo 20yo @ [employer] [employer]. Yolanda 18yo Housing: house Number of Children: 2 Communication Needs: None Education Level: college Do you need help understanding health information?: Rarely current occupation: Teacher. Pets and animals: Yes Pets and animals: dog(s) Do you think of yourself as: straight/heterosexual Current gender identity: female What is your relationship status?: How often do you talk on the phone with friends or family?: three or more times per week How often do you get together with friends or relatives?: twice per week How often do you attend hoahaoism or mu-ism services?: 1-3 times per year Do you belong to any clubs or organized social groups?: yes Panel score (0-1 are the most socially isolated patients): 2 What type of physical activity do you participate in: running Duration: 30-45 minutes/day Frequency: 3-4 times per week Delaney/Taoism: None Special delaney needs: No Seatbelt use: always Helmet use: Yes Helmet use: always Drive intox or ride w/intox security patrol driver: No Do you feel safe at home: Yes Do you feel safe in your relationship?: Yes Time Spent with Patient Time Spent with Patient: <45 minutes Time was spent: preparing to see the patient(eg.review tests), obtaining and/or reviewing separately otained hiistory and counseling the patient
--- NOTE | 2023-06-05 10:44 | NUR.NOTE ---
Reviewed and agree with student assessment and documentation. Precious Price, MSN, RNC (clinical instructor)
== END 2023-06-05 09:52 | disposition home or self-care (01) ==
LOC: MS 12:21
PROVIDERS: Admitting Provider Obstetrics & Gynecology Gynecology; PCP Nurse Practitioner Family; Visit Provider Obstetrics & Gynecology Gynecology
PROC: 0UT9FZZ Resection of Uterus, Via Natural or Artificial Opening With Percutaneous Endoscopic Assistance (ICD-10-PCS; CPT 58552; principal; 2023-06-04 08:15)
DX: D25.2 Subserosal leiomyoma of uterus (principal); D25.1 Intramural leiomyoma of uterus; N93.9 Abnormal uterine and vaginal bleeding, unspecified; R10.2 Pelvic and perineal pain
CPT/HCPCS: 58552; 36415; 85027; 96361; 96374; 96375; 88307; G0378; J0131; J0665; J0690; J1100; J1885; J2001; J2004; J2250; J2274; J2371; J2405; J2704; J3010

== ENCOUNTER 2024-03-30 08:26 | Day surgery (SDC) | payer BC, SELFPAY ==
--- NOTE | 2024-03-29 16:24 | W.PM.DSUDISC ---
Date of service: 03/30/24 Discharge Plan Disposition Patient Disposition: Home Condition: Good Discharge Details Reason For Visit: excisional biopsy of left rectus abdominus mass Attending Provider: Davi Godoy Primary Care Provider: Cruz Pringle Home Meds and New Rx's Prescriptions: New tramadol 50 mg tablet 50 mg PO Q8H PRNQty: 12 0RF Rx Instructions: Take 1 tablet by mouth up to every 8 hours if needed for severe pain Continued metronidazole 500 mg tablet 500 mg PO Q12H PRN Patient Comments: Pt. states she always has this on hand, but is not currently taking at this time. Discharge Instructions Additional Instructions: Caitlin, was very nice seeing you today, and I hope you make a quick recovery from this procedure. I was able to find the mass in the left rectus muscle and excise it. Honestly I am not sure what this is. My first suspicion was a intramuscular lipoma, however, after looking at it today I am a little skeptical that that is the case. The tissue was much more dense, and really felt like scar tissue, and this could just be some retained suture material, or scar from your previous surgeries, although it is a little bit away from your other incisions. I did my best to remove this as much as I could, but was quite careful along the edges of your rectus muscle, as I want to preserve as much muscle function as possible. I left some small markers in the wound bed if this turns out to be something that is unanticipated and requires more surgery, although I am skeptical that is the case. I would expect to have quite a bit of bruising in the days to come since this was so invested in the musculature. I will also be quite sore. I tried to use quite a bit of local anesthetic to help provide some relief from the incision. Please be careful over the next 2 weeks with stressing your abdominal muscles. I would encourage you to use a pillow or some gentle pressure over the incision if you need to cough, or sneeze. Avoid things like sit ups and abdominal crunches. You can get up and move around. You should be walking and getting some very basic exercise. I would restrict her lifting to about a gallon of milk or so for the first week and a half, and see how you are feeling after that. I will send the specimen off to the pathologist for their review, and once we have a tissue diagnosis, I will be able to offer any other suggestions with regards to other treatments. Hopefully, however, this is all just old scar tissue and the excision of it will provide some relief of the discomfort you have been experiencing. If you have any questions, or need anything at all, please do not hesitate to call, otherwise I look forward to seeing you in the office on the at 8:30 AM 1. Resume all of your regular medications. 2. Alternate heating pads and ice packs over the incision for 15-minute intervals. This should help provide some incisional relief 3. Alternate [id number] Tylenol and ibuprofen every 6 hours for the first 2 days, then use as needed. Use the prescription for tramadol if needed for more intense pain. 4. Leave bandage in place for 24 hours, then remove. 5. Shower with warm soapy water. Pat dry. Use a bandaid if needed to protect your clothing. 6. No soaking or tub baths until I see you in the office. 7. No heavy lifting until I see you in the office. 8. Call the office (or go directly to the emergency room after hours) if you notice any of the following: Develop chills (warm to touch), or if you have a thermometer and your temperature is above 101 Difficulty breathing or difficultly swallowing Persistent vomiting Any bleeding ? exceeding one tablespoon 9. Call your physician if the site where your intravenous was started becomes red, swollen, painful, and warm to touch. Activity:: No heavy lifting Remove Dressings/Wound Care:: 24 hours Shower/Bathe:: 24 hours Diet:: As Tolerated Discharge Orders Discharge Orders: Discharge Order (Routine); Ordered 03/29/24 Ordered By: Davi Godoy DS: Diagnosis Discharge Diagnosis (1) Abdominal mass: Status: Acute Asessment and Plan: Follow-up on biopsy results with outpatient postoperative office visit
--- NOTE | 2024-03-29 16:26 | ROE_ITS ---
Operative Note Operative Note PRE-OP DIAGNOSIS: Left rectus abdominis mass POST-OP DIAGNOSIS: same PROCEDURE: excisional biopsy of left rectus abdominus mass SURGEON: Davi Godoy MOTOR INSTALLER: Nubia Gómez ANESTHESIA TYPE: General LMA/ETT Refer to Anesthesia Record ESTIMATED BLOOD LOSS: 10 PATHOLOGY: other (Left rectus abdominis mass) Patient was transported to: same day Patient's condition: stable Indications: Caitlin is a 48-year-old woman with left lower abdominal pain. She has a mass in the rectus muscle of the left lower quadrant Findings: Dense, firm serpiginous mass in the left lower rectus abdominis muscle Procedure Description: I met with Caitlin in the preoperative area, and we reviewed the plan for mathew rgery. She confirmed the appropriate location. Next, we moved back to the operating room, she was assisted onto the OR table and padded and supported appropriately. Anesthesia was then begun. Once she was comfortable, I prepped and draped the left lower quadrant. I established a generous field block using local anesthetic. I made a transverse incision over the mass, and began dissected down through the subcutaneous fat. I continued this dissection down onto the left rectus sheath. This was incised sharply in a slightly transverse fashion. Immediately under it, there was a firm dense mass that was well adherent to the underside of the fascia, as well as some of the surrounding rectus muscle. Careful dissection was used to separate away the surrounding muscle fibers. Along the posterior medial aspect of the lesion, it was densely adherent to the muscular fibers. Using combination of blunt and sharp dissection, I this free. I continued this dissection along the post erior and inferior margins, where again, it was quite difficult to discern true tissue planes. A portion of the posterior inferior aspect of the mass was sharply divided from the surrounding tissue, that seemed most consistent with scar tissue. Once the mass was completely excised, it was passed off the field as a operative specimen. I used 2 surgical clips to alva the wound bed if this pathology is something out of the ordinary and requires further treatment. The wound bed was then irrigated. Small areas of bleeding were easily controlled with electrocautery. Some of the muscle was reapproximated with 3-0 Vicryl stitches. Next, the fascia was reapproximated with interrupted 2-0 PDS sutures. The deep fat layers were also irrigated clean. They appeared hemostatic. This was reapproximated with interrupted Vicryl stitches, and the skin was closed with a running subcuticular stitch. Band-Aid was applied, the patient was allowed to wake from the anesthetic and transferred back to same-day surgery unit. Date of Procedure: 03/30/24
[2024-03-30 08:51] VITALS: BP 112/73; PULSE 74; RESP 16; TEMP 36.7; O2SAT 98
[2024-03-30] MEDS: Acetaminophen 500 MG TAB 1000 MG PO (09:05)
[2024-03-30] MEDS: Gabapentin 300 MG CAP 600 MG PO (09:05)
[2024-03-30] MEDS: Celecoxib 200 MG CAP PO (09:05)
[2024-03-30] MEDS: Normal Saline 500 ML 30 ML IV (09:07)
--- NOTE | 2024-03-30 09:19 | W.ANESPRE ---
General Info Date of Service Date Performed: 03/30/24 Height: 5 ft 7 in Weight: 77.4 kg Body Mass Index (BMI): 26.7 Surgical Procedure: Operation Date: 03/30/24 09:55 Proposed Procedure Side Surgeon p Excision and Closure of Lt Rectus Abdominal Mass Left Davi Godoy MD Meds Allergies and Home Medications Allergies Allergy/AdvReac Type Severity Reaction Status Date / Time No Known Allergies Allergy Verified 03/30/24 08:40 Home Medication ?Medication ?Instructions ?Recorded metronidazole 500 mg tablet 500 mg PO Q12H PRN 06/02/23 Current Visit Medications: Current Medications Generic Name Dose Route Start Last Admin Trade Name Freq PRN Reason Stop Dose Admin Acetaminophen 1,000 mg 03/30/24 06:00 03/30/24 09:05 Acetaminophen 500 Mg Tab PO 03/30/24 23:59 1,000 mg PREOP NEELAM Administration Celecoxib 200 mg 03/30/24 06:00 03/30/24 09:05 Celecoxib 200 Mg Cap PO 03/30/24 23:59 200 mg PREOP NEELAM Administration Gabapentin 600 mg 03/30/24 06:00 03/30/24 09:05 Gabapentin 300 Mg Cap PO 03/30/24 23:59 600 mg PREOP NEELAM Administration Hydromorphone HCl 0.2 mg 03/29/24 16:27 Hydromorphone 1 Mg/Ml Syr IVP 04/28/24 16:26 Q1H PRN PRN Cefazolin Sodium/Dextrose 2 gm in 50 mls @ 100 mls/hr 03/30/24 06:00 Ancef Duplex IVPB 03/30/24 23:59 PREOP NEELAM Sodium Chloride 500 mls @ 30 mls/hr 03/30/24 08:30 03/30/24 09:07 Saline 500ml Bag IV 04/29/24 08:29 30 mls/hr INFUSION NEELAM Administration IV Miscellaneous Supplies 1 each 03/30/24 06:00 Iv Access IV 03/30/24 23:59 DIRECTED NEELAM Sodium Chloride 0 ml 03/30/24 06:00 Normal Saline Flush 10 Ml Syr IV 03/30/24 23:59 PRN PRN Sodium Chloride 0 ml 03/30/24 06:00 Normal Saline 10 Ml Vial IJ 03/30/24 23:59 DIRECTED PRN Sterile Water 0 ml 03/30/24 06:00 Water,Injection,Sterile 10 Ml Vial IJ 03/30/24 23:59 DIRECTED PRN Tramadol HCl 50 mg 03/29/24 16:27 Tramadol 50 Mg Tab PO 04/28/24 16:26 Q6H PRN PRN Pain PFSH Active Problems Active Problems: Problem Status Onset Code Abdominal mass Acute R19.00 History of abdominoplasty Acute Z98.890 History of LAVH Acute Z90.710 Abdominal pain Acute R10.9 Lump of left breast Acute N63.20 Thyroid nodule Acute 07/24/16 E04.1 Thyroid cyst Acute 02/28/16 E04.1 Seborrheic keratoses Acute 01/02/14 L82.1 Medical History Medical History Bacterial vaginosis recurrent/prophylactic tx with metronidazole Vaginal bleeding Fibroid uterus 2019. [id number] Fibroids: [id number], [id number] 202. [id number] Fibroids: [id number], [id number] Abnormal uterine bleeding (AUB) Surgical History Surgical History Hx of section History of biopsy SHAVE BX L THIGH 01/02/14 Tobacco Smoking/Tobacco Use Status: Never Second hand exposure: Yes Alcohol Alcohol Intake: current Alcohol intake frequency: a few times a month Substance Use Substance use: Never Substance use type: does not use Vital Signs and Lab Results Vital Signs Most Recent Vital Signs in EMR: Most Recent Vital Signs Temp Pulse Resp BP Pulse Ox 36.7 C 74 16 112/73 98 03/30/24 08:51 03/30/24 08:51 03/30/24 08:51 03/30/24 08:51 03/30/24 08:51 Lab Results Blood Type / Crossmatch: No Data to Display Complete Blood Count: No Data to Display Complete Metabolic Panel: No Data to Display Liver Function Panel: No Data to Display Coagulation Panel: No Data to Display Cardiac Panel: No Data to Display Arterial Blood Gas: No Data to Display Venous Blood Gas: No Data to Display Pancreas Panel: No Data to Display Thyroid Panel: No Data to Display Infectious Disease: No Data to Display Blood Cultures: No Data to Display Toxicology Panel: No Data to Display Panel: No Data to Display Anesthesia Assessment and Plan Anesthesia History Personal History: No History of Anesthesia Complications Family History: No Family History of Anesthesia Complications Exercise Tolerance Exercise Tolerance: Metabolic Equivalents>4 Pertinent Negatives Pertinent Negatives: No Symptoms of GERD Cardiac & Pulmonary Exam Cardiac Exam: Normal S1/S2 Heart Sounds Pulmonary Exam: Clear Bilateral Breath Sounds Implantable Cardiac Device Does patient have a Pacemaker or an ICD?: No Airway Exam Known Difficult Airway: No Mallampati Class: 2 Mouth Opening: Normal (> 3cm) Thyromental Distance: Greater than 3 cm Neck Range of Motion: Full ROM Neck Circumference: Normal Teeth Condition: Normal Dentition ASA Classification ASA Score: ASA 2 Emergency Case?: No NPO Status NPO Status: NPO Clears >2 hours, Solids >8 hours Status Status: History of Hysterectomy Anesthesia Plan Resuscitation Status: Full Code Anesthesia Technique: General Anesthesia Airway Planned: Natural Airway Monitors Used: Standard Monitors
[2024-03-30 09:20] VITALS: BMI 26.7
[2024-03-30] MEDS: Lactated Ringers 500 ML 30 ML IV (10:22)
[2024-03-30] MEDS: ceFAZolin 2 GM/50 ML BAG IVPB (10:25)
--- NOTE | 2024-03-30 11:05 | SOFT_PTH ---
PATIENT: Caitlin Epstein LOC: [facility] U#:[id number] AGE/SX: 48/F ROOM: RE03/30/[address]: Davi Godoy MD : 1975 BED: DIS: 03/30/2024 SPEC #: [id number] RECD: 03/30/24 12:51 STATUS: JANETH RE #: [id number] ELVIS: 03/30/24 11:[address]: Davi Godoy DEPT: Surgical Specimen RECD BY: Deepika Luu ENTERED: 03/30/24 12:54 SP TYPE: SOFT OTHR DR: Cruz Pringle, PRISCILLA Tissues: 1 - SOFT TISSUE [facility] [place] [facility] Procedures: GROSS AND MICRO LEVEL 4 Comments: [id number]
[2024-03-30] MEDS: Bupivacaine 0.5% Pres-Free W/EPI 30 ML VIAL (11:15)
[2024-03-30 11:30] VITALS: BP 100/67; PULSE 76; RESP 16; TEMP 36.1; O2SAT 98
--- NOTE | 2024-03-30 11:45 | W.ANESPOSTOP ---
Postoperative Evaluation Date, Time and Location Date Performed: 03/30/24 Time Performed: 11:45 Patient Location: Day Surgery Unit Vital Signs Most Recent Imported Vital Signs: Most Recent Vital Signs Temp Pulse Resp BP Pulse Ox 36.1 C L 76 16 100/67 98 03/30/24 11:30 03/30/24 11:30 03/30/24 11:30 03/30/24 11:30 03/30/24 11:30 Pain Score Most Recent Pain Score: Most Recent Pain Score Pain Level 0 03/30/24 11:30 Assessment Mental Status: Awake (Alert & Oriented to Patient Baseline) Airway and Respiratory Function: Patent airway with normal (patient baseline) respiratory exam Cardiovascular Function: Hemodynamically Stable Hydration Status: Adequately Hydrated Nausea & Vomiting: No Nausea or Vomiting Pain: Pt. Denies Any Pain Peripheral Nerve Block: Patient did not receive a nerve block
[2024-03-30 12:00] VITALS: BP 108/73; PULSE 63; RESP 16; TEMP 36.2; O2SAT 100
== END 2024-03-30 13:23 | disposition home or self-care (01) ==
LOC: SUR 08:27
PROVIDERS: PCP Nurse Practitioner Family; Visit Provider Surgery
PROC: (CPT 22900; principal; 2024-03-30 09:45)
DX: M62.89 Other specified disorders of muscle (principal); R10.32 Left lower quadrant pain; N80.9 Endometriosis, unspecified
CPT/HCPCS: 22900; 88305; 88304; J0690; J1100; J2003; J2405; J2704; J3010